=== PATIENT | male | born 1965 | race Caucasian/White ===

== ENCOUNTER → 2020-09-30 | Outpatient (CLI) | payer OTHER | END | disposition home or self-care (01) ==

== ENCOUNTER 2024-08-30 16:33 | Observation (INO) | payer OTHER ==
[2024-08-30] MEDS: PANTOPRAZOLE 40 MG/10 ML VIAL IVP STA (17:22)
[2024-08-30] MEDS: ONDANSETRON 4 MG/2 ML VIAL IVP STA (17:22)
[2024-08-30] MEDS: SODIUM CHLORIDE 0.9% 1,000 ML IV STA (17:23)
[2024-08-30 17:24] LABS: Basophils # (A) 0.05 10*3/uL (0.00-0.10); Basophils % (A) 0.7 %; Eosinophils # (A) 0.13 10*3/uL (0.04-0.35); Eosinophils % (A) 1.7 %; HCT 47.1 % (39.6-50.0); HGB 15.6 g/dL (13.0-17.0); Lymphocytes # (A) 1.52 10*3/uL (0.90-5.00); Lymphocytes % (A) 20.3 %; MCH 30.6 pg (27.0-32.0); MCHC 33.1 g/dL (32.0-37.0); MCV 92.5 fL (80.0-97.0); Mean Platelet Volume 8.9 fL (9.5-12.2); Monocytes # (A) 0.64 10*3/uL (0.20-1.00); Monocytes % (A) 8.5 %; Neutrophils # (A) 5.14 10*3/uL (1.80-7.70); Neutrophils % (A) 68.7 %; Platelet Count 236 10*3/uL (140-440); RBC 5.09 10*6/uL (4.40-5.60); RDW 14.6 % (11.5-14.5); WBC 7.49 10*3/uL (4.50-10.00)
--- NOTE | 2024-08-30 17:32 | ED ---
GI Bleed HPI - General Chief complaint: GI Bleed Stated complaint: Blood in stool Time Seen by Provider: 08/30/24 16:49 Source: patient, RN notes reviewed, old records reviewed Mode of arrival: ambulatory Limitations: no limitations - History of Present Illness Initial comments: This is a 58-year-old male to the ER for evaluation today. Patient is on blood thinners but comes in with abdominal pain and significant blood in the stool bright red blood in the stool with bowel movement today. Patient feels a little lightheaded but not near syncopal. No prior history of GI bleed does have prior colonoscopy normal MD complaint: blood on toilet paper, gross hematochezia -: hour(s) Quality: cramping Consistency: constant Improves with: none Worsens with: bowel movement Associated Symptoms: abdominal pain - Related Data Home Medications Medication Instructions Recorded Confirmed Albuterol Inhaler [Ventolin Hfa 2 puff INHALATION RT-QID PRN 01/03/17 08/30/24 Inhaler] Glimepiride [Amaryl] 4 mg PO BID 01/03/17 08/30/24 Ibuprofen [Motrin] 800 mg PO TID PRN 01/03/17 08/30/24 metFORMIN HCL [Glucophage] 500 mg PO BID 01/03/17 08/30/24 Atorvastatin [Lipitor] 80 mg PO DAILY 08/30/24 08/30/24 Diclofenac Sodium Gel [Voltaren 1% 4 gm TOPICAL QID PRN 08/30/24 08/30/24 Gel] Docusate [Colace] 200 mg PO DAILY 08/30/24 08/30/24 Fluticasone Nasal [place] [Flonase 1 spr EA NOSTRIL DAILY 08/30/24 08/30/24 Nasal [place]] HYDROcodone/APAP 5-325MG [[place] 1 tab PO BID 08/30/24 08/30/24 5-325] Olopatadine HCl [Patanol 0.1%] 2 drops BOTH EYES DAILY 08/30/24 08/30/24 diazePAM [Valium] 5 mg PO BID 08/30/24 08/30/24 lisinopriL 40 mg PO DAILY 08/30/24 08/30/24 traZODone HCL 150 mg PO HS 08/30/24 08/30/24 Allergies Allergy/AdvReac Type Severity Reaction Status Date / Time No Known Allergies Allergy Verified 08/30/24 20:40 Review of Systems ROS Statement: Those systems with pertinent positive or pertinent negative responses have been documented in the HPI. ROS Other: All systems not noted in ROS Statement are negative. Past Medical History Past Medical History: COPD, Diabetes Mellitus, GERD/Reflux, Hypertension, Osteoarthritis (OA) Additional Past Medical History / Comment(s): shoulder pain.constipation, abd hernia History of Any Multi-Drug Resistant Organisms: None Reported Past Surgical History: Tonsillectomy Past Anesthesia/Blood Transfusion Reactions: No Reported Reaction Past Psychological History: No Psychological Hx Reported Past Alcohol Use History: Occasional Past Drug Use History: Marijuana - Past Family History Mother Family Medical History: Diabetes Mellitus, Hyperlipidemia, Hypertension Father Family Medical History: Cancer Additional Family Medical History / Comment(s): bone cancer General Exam Limitations: no limitations General appearance: alert, in no apparent distress Head exam: Present: atraumatic, normocephalic, normal inspection Eye exam: Present: normal appearance, PERRL, EOMI. Absent: scleral icterus, conjunctival injection, periorbital swelling ENT exam: Present: normal exam, mucous membranes moist Neck exam: Present: normal inspection. Absent: tenderness, meningismus, lymphadenopathy Respiratory exam: Present: normal lung sounds bilaterally. Absent: respiratory distress, wheezes, rales, rhonchi, stridor Cardiovascular Exam: Present: regular rate, normal rhythm, normal heart sounds. Absent: systolic murmur, diastolic murmur, rubs, gallop, clicks GI/Abdominal exam: Present: soft, normal bowel sounds. Absent: distended, tenderness, guarding, rebound, rigid Extremities exam: Present: normal inspection, full ROM, normal capillary refill. Absent: tenderness, pedal edema, joint swelling, calf tenderness Back exam: Present: normal inspection Neurological exam: Present: alert, oriented X3, CN II-XII intact Psychiatric exam: Present: normal affect, normal mood Skin exam: Present: warm, dry, intact, normal color. Absent: rash Course Vital Signs 08/30/24 08/30/24 16:48 19:55 Temperature 98.5 F Pulse Rate 100 93 Respiratory 17 17 Rate Blood Pressure 168/92 121/82 O2 Sat by Pulse 94 L 93 L Oximetry - Reevaluation(s) Reevaluation #1: 08/30/24 17:31 Medical records reviewed Reevaluation #2: 08/30/24 21:22 No recurrent bright red blood here in the ER Reevaluation #3: 08/30/24 21:22 Patient informed of results and questions answered Reevaluation #4: Was pt. sent in by a medical professional or institution (TANIA Baldwin, ELECTRICAL AND INSTRUMENT ENGINEER, urgent care, hospital, or fdc...) When possible be specific @ -no Did you speak to anyone other than the patient for history (EMS, parent, family, police, friend...)? What history was obtained from this source @ -no Did you review nursing and triage notes (agree or disagree)? Why? @ -agree Are old charts reviewed (outside hosp., previous admission, EMS record, old EKG, old radiological studies, urgent care reports/EKG's, fdc records)? Report findings @ -yes Differential Diagnosis (chest pain, altered mental status, abdominal pain women, abdominal pain men, vaginal bleeding, weakness, fever, dyspnea, syncope, he adache, dizziness, GI bleed, back pain, seizure, CVA, palpatations, mental health, musculoskeletal)? @ -prior EKG interpreted by me (3pts min.). @ -yes X-rays interpreted by me (1pt min.). @ -yes negative for acute disease CT interpreted by me (1pt min.). @ -no U/S interpreted by me (1pt. min.). @ -no What testing was considered but not performed or refused? (CT, X-rays, U/S, labs)? Why? @ -none What meds were considered but not given or refused? Why? @ -none Did you discuss the management of the patient with other professionals (professionals i.e. TANIA Baldwin, ELECTRICAL AND INSTRUMENT ENGINEER, lab, RT, psych nurse, delinquency prevention social worker, diamond cleaver, teacher, commercial loan officer, counseling case manager)? Give summary @ -no Was smoking cessation discussed for >3mins.? @ -no Was critical care preformed (if so, how long)? @ -no Were there social determinants of health that impacted care today? How? (Homelessness, low income, unemployed, alcoholism, drug addiction, transportation, low edu. Level, literacy, decrease access to med. care, retirement, rehab)? @ -none Was there de-escalation of care discussed even if they declined (Discuss DNR or withdrawal of care, Hospice)? DNR status @ -no What co-morbidities impacted this encounter? (DM, HTN, Smoking, COPD, CAD, Cancer, CVA, ARF, Chemo, Hep., AIDS, mental health diagnosis, sleep apnea, m orbid obesity)? @ -none Was patient admitted / discharged? Hospital course, mention meds given and route, prescriptions, significant lab abnormalities, going to OR and other pertinent info. @ - Undiagnosed new problem with uncertain prognosis? @ -no Drug Therapy requiring intensive monitoring for toxicity (Heparin, Nitro, Insulin, Cardizem)? @ -no Were any procedures done? @ -no Diagnosis/symptom? @ - Acute, or Chronic, or Acute on Chronic? @ -Acute Uncomplicated (without systemic symptoms) or Complicated (systemic symptoms)? @ -Complicated Side effects of treatment? @ -no Exacerbation, Progression, or Severe Exacerbation? @ -exacerbation Poses a threat to life or bodily function? How? (Chest pain, [place], [place], pneumonia, PE, COPD, DKA, ARF, appy, cholecystitis, CVA, Diverticulitis, Homicidal, Suicidal, threat to staff... and all critical care pts) @ -yes Reevaluation #5: Differential GI Bleed: Esophageal varices, aortoenteric fistula, Rohini-Parker, gastritis, peptic ulcer disease, diverticulosis, inflammatory bowel disease, hemorrhoids, fissure, c olitis, malignancy, Meckel's diverticulum, this is not meant to be an all- inclusive list. - Consultations Consultation #1: Spoke with Dr. Malloy who agrees to admit this patient Medical Decision Making - Medical Decision Making 58 male to be admitted for acute GI bleed - Lab Data Result diagrams: 08/30/24 17:21 08/30/24 17:21 Lab Results 08/30/24 08/30/24 08/30/24 Range/Units 17:21 17:21 17:21 WBC 7.49 (4.50-10.00) 10*3/uL RBC 5.09 (4.40-5.60) 10*6/uL Hgb 15.6 (13.0-17.0) g/dL Hct 47.1 (39.6-50.0) % MCV 92.5 (80.0-97.0) fL MCH 30.6 (27.0-32.0) pg MCHC 33.1 (32.0-37.0) g/dL Plt Count 236 (140-440) 10*3/uL MPV 8.9 L (9.5-12.2) fL Immature Gran % (Auto) 0.1 % Neutrophils % 68.7 % Lymphocytes % 20.3 % Monocytes % 8.5 % Eosinophils % 1.7 % Basophils % 0.7 % Immature Gran # 0.01 (0.00-0.04) 10*3/uL Neutrophils # 5.14 (1.80-7.70) 10*3/uL Lymphocytes # 1.52 (0.90-5.00) 10*3/uL Monocytes # 0.64 (0.20-1.00) 10*3/uL Eosinophils # 0.13 (0.04-0.35) 10*3/uL Basophils # 0.05 (0.00-0.10) 10*3/uL PT 10.4 (10.0-12.5) sec INR 0.9 (<1.2) APTT 22.9 (22.0-30.0) sec Sodium 136 L (137-145) mmol/L Potassium 5.1 (3.5-5.1) mmol/L Chloride 99 (98-107) mmol/L Carbon Dioxide 29 (22-30) mmol/L Anion Gap 8 mmol/L BUN 28 H (9-20) mg/dL Creatinine 1.12 (0.66-1.25) mg/dL Est GFR (CKD-EPI)AfAm 82 (>60 ml/min/1.73 sqM) Est GFR (CKD-EPI)NonAf 71 (>60 ml/min/1.73 sqM) Glucose 206 H (74-99) mg/dL Calcium 10.4 H (8.4-10.2) mg/dL Magnesium 1.5 L (1.6-2.3) mg/dL Total Bilirubin 0.7 (0.2-1.3) mg/dL AST 40 (17-59) U/L ALT 38 (4-49) U/L Alkaline Phosphatase 116 (38-126) U/L Ammonia (<30) umol/L Troponin I (0.000-0.034) ng/mL Total Protein 7.4 (6.3-8.2) g/dL Albumin 4.6 (3.5-5.0) g/dL Lipase 85 (23-300) U/L Blood Type Blood Type Confirm Blood Type Recheck Bld Type Recheck Status Antibody Screen Spec Expiration Date 08/30/24 08/30/24 08/30/24 Range/Units 17:21 17:30 17:35 WBC (4.50-10.00) 10*3/uL RBC (4.40-5.60) 10*6/uL Hgb (13.0-17.0) g/dL Hct (39.6-50.0) % MCV (80.0-97.0) fL MCH (27.0-32.0) pg MCHC (32.0-37.0) g/dL Plt Count (140-440) 10*3/uL MPV (9.5-12.2) fL Immature Gran % (Auto) % Neutrophils % % Lymphocytes % % Monocytes % % Eosinophils % % Basophils % % Immature Gran # (0.00-0.04) 10*3/uL Neutrophils # (1.80-7.70) 10*3/uL Lymphocytes # (0.90-5.00) 10*3/uL Monocytes # (0.20-1.00) 10*3/uL Eosinophils # (0.04-0.35) 10*3/uL Basophils # (0.00-0.10) 10*3/uL PT (10.0-12.5) sec INR (<1.2) APTT (22.0-30.0) sec Sodium (137-145) mmol/L Potassium (3.5-5.1) mmol/L Chloride (98-107) mmol/L Carbon Dioxide (22-30) mmol/L Anion Gap mmol/L BUN (9-20) mg/dL Creatinine (0.66-1.25) mg/dL Est GFR (CKD-EPI)AfAm (>60 ml/min/1.73 sqM) Est GFR (CKD-EPI)NonAf (>60 ml/min/1.73 sqM) Glucose (74-99) mg/dL Calcium (8.4-10.2) mg/dL Magnesium (1.6-2.3) mg/dL Total Bilirubin (0.2-1.3) mg/dL AST (17-59) U/L ALT (4-49) U/L Alkaline Phosphatase (38-126) U/L Ammonia (<30) umol/L Troponin I 0.015 (0.000-0.034) ng/mL Total Protein (6.3-8.2) g/dL Albumin (3.5-5.0) g/dL Lipase (23-300) U/L Blood Type A Positive Blood Type Confirm A Positive Blood Type Recheck No Previous Record Bld Type Recheck Status CABO Indicated Antibody Screen NEGATIVE Spec Expiration Date 09/02/2024 - 232908/30/24 Range/Units 17:51 WBC (4.50-10.00) 10*3/uL RBC (4.40-5.60) 10*6/uL Hgb (13.0-17.0) g/dL Hct (39.6-50.0) % MCV (80.0-97.0) fL MCH (27.0-32.0) pg MCHC (32.0-37.0) g/dL Plt Count (140-440) 10*3/uL MPV (9.5-12.2) fL Immature Gran % (Auto) % Neutrophils % % Lymphocytes % % Monocytes % % Eosinophils % % Basophils % % Immature Gran # (0.00-0.04) 10*3/uL Neutrophils # (1.80-7.70) 10*3/uL Lymphocytes # (0.90-5.00) 10*3/uL Monocytes # (0.20-1.00) 10*3/uL Eosinophils # (0.04-0.35) 10*3/uL Basophils # (0.00-0.10) 10*3/uL PT (10.0-12.5) sec INR (<1.2) APTT (22.0-30.0) sec Sodium (137-145) mmol/L Potassium (3.5-5.1) mmol/L Chloride (98-107) mmol/L Carbon Dioxide (22-30) mmol/L Anion Gap mmol/L BUN (9-20) mg/dL Creatinine (0.66-1.25) mg/dL Est GFR (CKD-EPI)AfAm (>60 ml/min/1.73 sqM) Est GFR (CKD-EPI)NonAf (>60 ml/min/1.73 sqM) Glucose (74-99) mg/dL Calcium (8.4-10.2) mg/dL Magnesium (1.6-2.3) mg/dL Total Bilirubin (0.2-1.3) mg/dL AST (17-59) U/L ALT (4-49) U/L Alkaline Phosphatase (38-126) U/L Ammonia 22 (<30) umol/L Troponin I (0.000-0.034) ng/mL Total Protein (6.3-8.2) g/dL Albumin (3.5-5.0) g/dL Lipase (23-300) U/L Blood Type Blood Type Confirm Blood Type Recheck Bld Type Recheck Status Antibody Screen Spec Expiration Date - Radiology Data Radiology results: report reviewed (CT abdomen pelvis negative for acute disease), image reviewed Disposition Clinical Impression: Lower gastrointestinal hemorrhage Disposition: ADMITTED IP TO THIS [facility] Condition: Fair Is patient prescribed a controlled substance at d/c from ED?: No Time of Disposition: 20:20
[2024-08-30 17:36] LABS: INR 0.9 (<1.2); Partial Thromboplastin Time 22.9 sec (22.0-30.0); Prothrombin Time 10.4 sec (10.0-12.5)
[2024-08-30 17:46] LABS: ALT 38 U/L (4-49); AST 40 U/L (17-59); African American GFR (CKD) 82 (>60 ml/min/1.73 sqM); Albumin 4.6 g/dL (3.5-5.0); Alkaline Phosphatase 116 U/L (38-126); Anion Gap 8 mmol/L; Blood Urea Nitrogen 28 mg/dL (9-20); Calcium 10.4 mg/dL (8.4-10.2); Carbon Dioxide 29 mmol/L (22-30); Chloride 99 mmol/L (98-107); Glucose 206 mg/dL (74-99); Lipase 85 U/L (23-300); Magnesium 1.5 mg/dL (1.6-2.3); Non-African American GFR(CKD) 71 (>60 ml/min/1.73 sqM); Potassium 5.1 mmol/L (3.5-5.1); Sodium 136 mmol/L (137-145); Total Bilirubin 0.7 mg/dL (0.2-1.3); Total Protein 7.4 g/dL (6.3-8.2)
--- NOTE | 2024-08-30 18:37 | CT ---
EXAMINATION TYPE: CT abdomen pelvis w con DATE OF EXAM: 08/30/2024 6:14 PM COMPARISON: None. CLINICAL INDICATION: Male, 58 years old with history of pain,gib, Pt states "discharging blood out of butt" x today TECHNIQUE: Axial images were obtained from above the diaphragm to the pubic rami in the axial plane a t 5 mm thick sections. Reconstructed images are reviewed on the computer in the coronal plane. CONTRAST: 100ml mL of Isovue 300. Study performed without Oral Contrast DLP: 2064.6 mGycm, Automated exposure control for dose reduction was used. FINDINGS: Limited CT sections are obtained the lung bases. The lung bases are clear. CT ABDOMEN: Liver: Normal Spleen: Normal Pancreas: Normal Adrenal glands: The adrenal glands are normal. Gallbladder: Normal Kidneys: No masses are evident. No hydronephrosis is present. No cysts are present. Delayed images were obtained through the kidneys, which remain unremarkable. Aorta: Vascular calcification is within the aorta. Inferior vena cava: Normal. CT PELVIS: Loops of bowel within the abdomen and pelvis are normal. Diverticulosis without acute diverticulitis is present within the sigmoid colon Study is without oral contrast. No suspicious abnormality to a ccount for GI bleed is evident Appendix: Normal as visualized. Urinary bladder: Normal. Genitourinary structures: Prostate calcifications present Osseous structures: No suspicious lytic or sclerotic lesions. IMPRESSION: 1. No suspicious acute changes. [facility], , 08/30/2024 6:35 PM
[2024-08-30] MEDS ORDERED: NALOXONE 0.4 MG/ML 1 ML VIAL IV PRN (19:37)
[2024-08-30] MEDS: MAGNESIUM SULFATE-D5W PMX 1 GM in DEXTROSE/WATER 1 100ML.BAG IVPB SCH (19:50)
[2024-08-30] MEDS: SODIUM CHLORIDE 0.9% 1,000 ML IV SCH (21:00)
[2024-08-30] MEDS: MORPHINE SULFATE 4 MG/ML SYRINGE IV PRN (23:15)
[2024-08-30] MEDS: ONDANSETRON 4 MG/2 ML VIAL IVP PRN (23:35)
[2024-08-31 08:17] LABS: Basophils # (A) 0.07 X 10*3/uL (0.00-0.10); Basophils % (A) 0.9 %; Eosinophils # (A) 0.23 X 10*3/uL (0.04-0.35); Eosinophils % (A) 3.1 %; HCT 45.6 % (39.6-50.0); HGB 14.4 g/dL (13.0-17.0); Lymphocytes # (A) 2.55 X 10*3/uL (0.90-5.00); Lymphocytes % (A) 34.2 %; MCH 30.1 pg (27.0-32.0); MCHC 31.6 g/dL (32.0-37.0); MCV 95.4 FL (80.0-97.0); Mean Platelet Volume 9.4 FL (9.5-12.2); Monocytes # (A) 0.84 X 10*3/uL (0.20-1.00); Monocytes % (A) 11.3 %; NRBC Per 100 WBC 0 X 10*3/uL (0.00-0.01); Neutrophils # (A) 3.76 X 10*3/uL (1.80-7.70); Neutrophils % (A) 50.4 %; Platelet Count 234 X 10*3/uL (140-440); RBC 4.78 X 10*6/uL (4.40-5.60); RDW 14.8 % (11.5-14.5); WBC 7.46 X 10*3/uL (4.50-10.00)
[2024-08-31 08:47] LABS: ALT 33 U/L (10-49); AST 35 U/L (14-35); Albumin 4.1 g/dL (3.8-4.9); Albumin/Globulin Ratio 1.86 Ratio (1.60-3.17); Alkaline Phosphatase 104 U/L (41-126); Blood Urea Nitrogen 20.2 mg/dL (9.0-27.0); Calcium 9.5 mg/dL (8.7-10.3); Carbon Dioxide 27.3 mmol/L (21.6-31.8); Chloride 103 mmol/L (96-109); Globulin 2.2 g/dL (1.6-3.3); Glucose 90 mg/dL (70-110); Magnesium 2.2 mg/dL (1.5-2.4); Phosphorus 3.4 mg/dL (2.4-5.1); Potassium 5.3 mmol/L (3.5-5.5); Sodium 140 mmol/L (135-145); Total Bilirubin 0.4 mg/dL (0.3-1.2); Total Protein 6.3 g/dL (6.2-8.2)
[2024-08-31] MEDS ORDERED: DEXTROSE 50% SYRINGE 50 ML IVP PRN ×2 (09:01)
[2024-08-31] MEDS: PANTOPRAZOLE 40 MG/10 ML VIAL IV SCH (09:03)
--- NOTE | 2024-08-31 11:01 | P.CONS ---
History of Present Illness - Reason for Consult Consult date: 08/31/24 GI bleed Requesting physician: Arnulfo Luis - Chief Complaint Rectal bleeding - History of Present Illness This is a pleasant 58-year-old male with past medical history including diabetes mellitus, hypertension, obesity, and arthritis who had presented to the [facility] department yesterday with complaints of blood per rectum. Patient states he had 4 episodes of bright red blood per rectum. States he started with a left lower abdominal cramping followed by feeling like he had a bowel movement however it was just blood was mixed with some clots in the toilet. He states that this has happened in the past with having an actual bowel movement which he thought was related to straining. He does suffer from constipation and irregular bowel movements. States it is normal for him to go every 5 days without having a bowel movement. Last bowel movement was Friday evening. He denies any anticoagulation use. Takes ibuprofen as needed for pain for history of rotator cuff tear and arthritis. Last colonoscopy about 5 years ago he believes done at [facility]. Had a CT of the abdomen pelvis with IV contrast no oral contrast that reported no acute findings did have diverticulosis without any concern for diverticulitis. Admitting hemoglobin 15.6 with a repeat today of 14.4. He has had no further bleeding since he came into the hospital. States he does still have some left lower abdominal tenderness with palpation but no pain currently. No nausea or vomiting. He has been afebrile. Review of Systems REVIEW OF SYSTEMS: CARDIOPULMONARY: No chest pain or shortness of breath. Gastrointestinal: Abdominal pain, left lower quadrant. No nausea or vomiting. No hematemesis, coffee-ground emesis. Rectal bleeding x 4 episodes of bright red blood with clots. GENITOURINARY: No dysuria or hematuria. MUSCULOSKELETAL: Reports normal range of motion., Joint pain, shoulder pain bilateral and knee pain. SKIN: No rashes. No jaundice. ENDOCRINE: No chills, fevers. No excessive weight gain or loss. No polydipsia or polyuria. PSYCHIATRIC: Unremarkable. NEUROLOGY: No change in mental status. Denies dizziness, headache. ENT: Vision unremarkable. CONSTITUTIONAL: No recent weight loss. No fever, chills, night sweats. Past Medical History Past Medical History: COPD, Diabetes Mellitus, GERD/Reflux, Hypertension, Osteoarthritis (OA) Additional Past Medical History / Comment(s): shoulder pain.constipation, abd hernia History of Any Multi-Drug Resistant Organisms: None Reported Past Surgical History: Tonsillectomy Past Anesthesia/Blood Transfusion Reactions: No Reported Reaction Past Psychological History: No Psychological Hx Reported Additional Psychological History / Comment(s): pt is independant. lives with his mom. 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 Past Drug Use History: Marijuana Additional Drug Use History / Comment(s): currently smokes marijuana daily - Past Family History Mother Family Medical History: Diabetes Mellitus, Hyperlipidemia, Hypertension Father Family Medical History: Cancer Additional Family Medical History / Comment(s): bone cancer Medications and Allergies Home Medications Medication Instructions Recorded Confirmed Type Albuterol Inhaler [Ventolin Hfa 2 puff INHALATION RT-QID PRN 01/03/17 08/30/24 History Inhaler] Glimepiride [Amaryl] 4 mg PO BID 01/03/17 08/30/24 History Ibuprofen [Motrin] 800 mg PO TID PRN 01/03/17 08/30/24 History metFORMIN HCL [Glucophage] 500 mg PO BID 01/03/17 08/30/24 History Atorvastatin [Lipitor] 80 mg PO DAILY 08/30/24 08/30/24 History Diclofenac Sodium Gel [Voltaren 1% 4 gm TOPICAL QID PRN 08/30/24 08/30/24 History Gel] Docusate [Colace] 200 mg PO DAILY 08/30/24 08/30/24 History Fluticasone Nasal [place] [Flonase 1 spr EA NOSTRIL DAILY 08/30/24 08/30/24 History Nasal [place]] HYDROcodone/APAP 5-325MG [[place] 1 tab PO BID 08/30/24 08/30/24 History 5-325] Olopatadine HCl [Patanol 0.1%] 2 drops BOTH EYES DAILY 08/30/24 08/30/24 History diazePAM [Valium] 5 mg PO BID 08/30/24 08/30/24 History lisinopriL 40 mg PO DAILY 08/30/24 08/30/24 History traZODone HCL 150 mg PO HS 08/30/24 08/30/24 History Allergies Allergy/AdvReac Type Severity Reaction Status Date / Time No Known Allergies Allergy Verified 08/30/24 20:40 Physical Exam Vitals: Vital Signs Temp Pulse Pulse Resp BP BP Pulse Ox 08/31/24 07:03 97.9 F 80 16 114/68 91 L 08/31/24 02:00 97.6 F 86 16 147/79 93 L 08/30/24 21:41 97.8 F 90 18 173/84 95 08/30/24 19:55 93 17 121/82 93 L 08/30/24 16:48 98.5 F 100 17 168/92 94 L Intake and Output 08/30/24 08/31/24 08/31/24 22:59 06:59 14:59 Other: # Voids 1 Weight 111.13 kg General appearance: The patient is alert, oriented, appears in no acute distress. HET: Head is normocephalic and atraumatic. Conjunctiva pink. Sclera anicteric. Neck: Supple without lymphadenopathy. Trachea midline. Heart: Regular. Lungs: Equal expansion, normal respiratory effort. Abdomen: Soft, left lower quadrant tenderness, nondistended. Skin: No rashes. No jaundice. Extremities: Normal skin color and turgor. No pedal edema. Neurological: No focal deficits. Alert and oriented x3. Results CBC & Chem 7: 08/31/24 04:43 08/31/24 04:43 Labs: Abnormal Lab Results - Last 24 Hours (Table) 08/30/24 08/30/24 08/31/24 Range/Units 17:21 17:21 04:43 MCHC 31.6 L (32.0-37.0) g/dL RDW 14.8 H (11.5-14.5) % MPV 8.9 L 9.4 L (9.5-12.2) fL Sodium 136 L (137-145) mmol/L BUN 28 H (9-20) mg/dL BUN/Creatinine Ratio (12.00-20.00) Ratio Glucose 206 H (74-99) mg/dL Calcium 10.4 H (8.4-10.2) mg/dL Magnesium 1.5 L (1.6-2.3) mg/dL 08/31/24 Range/Units 04:43 MCHC (32.0-37.0) g/dL RDW (11.5-14.5) % MPV (9.5-12.2) fL Sodium (137-145) mmol/L BUN (9-20) mg/dL BUN/Creatinine Ratio 20.20 H (12.00-20.00) Ratio Glucose (74-99) mg/dL Calcium (8.4-10.2) mg/dL Magnesium (1.6-2.3) mg/dL Comments: CT abdomen pelvis with IV contrast reports no suspicious acute changes. Assessment and Plan (1) Lower gastrointestinal hemorrhage Narrative/Plan: 58-year-old male with 4 episodes of rectal bleeding yesterday described as bright red blood with clots following left lower abdominal cramping. This is in a patient who does suffer from constipation and irregular bowel movements with previous rectal bleeding with bowel movements however no previous straight blood per rectum. No further rectal bleeding. Need to consider possible diver ticular bleed in setting of diverticulosis on CAT scan, also consider possible rectal fissure or hemorrhoidal bleed. Last colonoscopy 5 years ago. Will proceed with colonoscopy. Current Visit: Yes Status: Acute Code(s): K92.2 - GASTROINTESTINAL HEMORRHAGE, UNSPECIFIED SNOMED Code(s): 68108727 (2) Diabetes mellitus Current Visit: Yes Status: Acute Code(s): E11.9 - TYPE 2 DIABETES MELLITUS WITHOUT COMPLICATIONS SNOMED Code(s): 44061929 (3) Obesity Current Visit: Yes Status: Acute Code(s): E66.9 - OBESITY, UNSPECIFIED SNOMED Code(s): 904725218 (4) Essential hypertension Current Visit: No Status: Acute Code(s): I10 - ESSENTIAL (PRIMARY) HYPERT ENSION SNOMED Code(s): 54423125 Plan: 1. Continue symptomatic and supportive care 2. Patient may have clear liquid diet, n.p.o. after midnight 3. Daily CBC, transfuse for hemoglobin less than 7 4. Bowel prep this evening 5. Recommend regular bowel regimen with MiraLAX once to twice daily for constipation 6. Plan for colonoscopy tomorrow Thank you for this consultation, we will continue to follow. Dr. Bhavesh Silva I agree with the dictator's note, documented as a scribe by Giselle Pinzon
[2024-08-31 12:11] LABS: Glucose,Whole Blood 157 mg/dL (70-110)
[2024-08-31] MEDS: INSULIN LISPRO (HumaLOG) 100 UNIT/ML 10 mL VL SQ SCH (13:25)
[2024-08-31] MEDS: PEG 3350 (236 GM/BTL) + LYTES 4,000 ML BOTTLE PO ONE (16:06)
[2024-08-31 17:38] LABS: Glucose,Whole Blood 129 mg/dL (70-110)
[2024-08-31 20:32] LABS: Glucose,Whole Blood 131 mg/dL (70-110)
[2024-09-01 07:16] LABS: Glucose,Whole Blood 102 mg/dL (70-110)
[2024-09-01 08:02] LABS: Basophils # (A) 0.04 X 10*3/uL (0.00-0.10); Basophils % (A) 0.7 %; Eosinophils % (A) 3.3 %; HCT 42.9 % (39.6-50.0); HGB 13.5 g/dL (13.0-17.0); Lymphocytes % (A) 35.1 %; MCH 30.5 pg (27.0-32.0); MCHC 31.5 g/dL (32.0-37.0); MCV 97.1 FL (80.0-97.0); Mean Platelet Volume 9.4 FL (9.5-12.2); Monocytes # (A) 0.68 X 10*3/uL (0.20-1.00); Monocytes % (A) 11.4 %; NRBC Per 100 WBC 0 X 10*3/uL (0.00-0.01); Neutrophils # (A) 2.96 X 10*3/uL (1.80-7.70); Neutrophils % (A) 49.3 %; Platelet Count 201 X 10*3/uL (140-440); RBC 4.42 X 10*6/uL (4.40-5.60); RDW 14.7 % (11.5-14.5); WBC 5.99 X 10*3/uL (4.50-10.00)
[2024-09-01 08:04] VITALS: RESP 16
[2024-09-01 12:09] LABS: Glucose,Whole Blood 110 mg/dL (70-110)
[2024-09-01 12:53] VITALS: BP 167/94; PULSE 77; TEMP 97.4
[2024-09-01] MEDS ORDERED: LIDOCAINE 1% INJ 10MG/ML (20 ML MDV) ONE (12:55)
[2024-09-01] MEDS ORDERED: PROPOFOL 10 MG/ML 20 ML VIAL IV ONE (12:55)
[2024-09-01] MEDS: IV FLUID CONTINUATION 800 ML IV ONE ×2 (13:02→13:16)
--- NOTE | 2024-09-01 13:17 | P.PCN ---
Date of Procedure: 09/01/24 Procedure(s) Performed: BRIEF HISTORY: Patient is a 58-year-old pleasant white male admitted to hospital with rectal bleeding for the last 3 days duration. He is not scheduled for colonoscopy to evaluate further. Hemoglobin is 13.5 g/dL. PROCEDURE PERFORMED: Colonoscopy with biopsy. PREOPERATIVE DIAGNOSIS: Rectal bleeding of 3 days duration IV sedation per Anesthesia. PROCEDURE: After informed consent was obtained, the patient, was brought into the endoscopy unit. IV sedation was administered by Anesthesia under continuous monitoring. Digital rectal examination was normal. Initially the Olympus CF-160 flexible video colonoscope was then inserted in the rectum, gradually advanced into the cecum without any difficulty. Careful examination was performed as the scope was gradually being withdrawn. Ileocecal valve and the appendiceal orifice were visualized and appeared normal. Prep was excellent. Mucosa of the cecum, ascending colon, transverse colon appeared normal. There was mucosal erythema with friability and congestion involving the distal, descending colon, and proximal sigmoid colon, extending from 30 to 50 cm from the anal verge consistent with mild ischemic colitis. Biopsies were done from this area. The distal sigmoid colon and rectum appeared normal. Retroflexion was performed in the rectum and no lesions were seen. The patient tolerated the procedure well. IMPRESSION: Mild mucosal erythema with congestion noted in the proximal sigmoid colon and distal descending colon extending from 30 to 50 cm from anal what consistent with mild ischemic colitis. Rest of the colon appeared normal RECOMMENDATIONS: Findings of this examination were discussed with the patient. He was advised to follow the biopsy results. Advance diet as tolerated. If he remains stable he can be discharged home later today or tomorrow with outpatient follow-up in 1 to 2 weeks.
--- NOTE | 2024-09-01 23:24 | HP ---
HISTORY AND PHYSICAL CHIEF COMPLAINT: Bright red rectal bleeding. HISTORY OF PRESENT ILLNESS: This gentleman presented to the emergency room with bright red rectal bleeding. He has always been a fairly noncompliant patient with hypertension, diabetes, COPD and multiple complaints of pain for which he receives a significant amount of narcotics. He presented to the emergency room with bright red rectal bleeding of several times. He has had no hypotension, syncope, abdominal pain, etc. REVIEW OF SYSTEMS: Otherwise unremarkable. Past medical history, family history, personal and social histories reveal that he is not allergic to any medications. MEDICATIONS: 1. He has been on: Metformin. 1. Glimepiride. 2. Motrin. 3. Diclofenac Gel. 4. Valium. 5. Ventolin. 6. DuoNeb. 7. Lisinopril. 8. Atorvastatin. 9. Trazodone. 10.[facility]. He has had no nausea, vomiting, or hematemesis. SOCIAL HISTORY: He does smoke. He drinks alcohol occasionally. PHYSICAL EXAMINATION: VITAL SIGNS: Normal. HEAD, EARS, EYES, NOSE, MOUTH AND THROAT: Normal. CHEST: Clear. CARDIAC: Demonstrated sinus rhythm with no significant tachycardia. ABDOMEN: Protuberant and somewhat firm. There were no definite masses or visceromegaly and there was no tenderness. Bowel sounds are present. EXTREMITIES: Normal. NEUROLOGICAL: He is intact. DIAGNOSES: He was admitted to the hospital with diagnoses of;: 1. Bright red rectal bleeding. 2. Type 2 diabetes. 3. Chronic obstructive pulmonary disease. 4. Hypertension. 5. Low back pain. PLAN: 1. Bedrest. 2. IV fluids. 3. Frequent monitoring of his neurologic status and vital signs. 4. Gastroenterology consult. MMODL / IJN: [id number] /
--- NOTE | 2024-09-02 02:29 | DS ---
DISCHARGE SUMMARY CHIEF COMPLAINT: GI bleed. HISTORY OF PRESENT ILLNESS AND PHYSICAL EXAMINATION: Details of this man's history and physical can be found in the initial workup. LABORATORY STUDIES: While he was in the hospital, he had laboratory studies, details of which can be found in the laboratory section of his chart. COURSE IN THE HOSPITAL: After admission, he was placed on bedrest, started on intravenous fluids, and seen by GI. His bleeding stopped. He was taken to the operating room on the , where he underwent endoscopy and apparently no pathology was found. There was a report that he might have a colitis. Apparently, a biopsy was obtained. He then abruptly signed himself out against medical advice. FINAL DIAGNOSES: 1. Gastrointestinal hemorrhage. 2. Hypertension. 3. Diabetes. OPERATIONS: Endoscopy. CONSULTATIONS: Gastroenterology. MMODL / IJN: [id number] /
--- NOTE | 2024-09-02 02:59 | PN ---
PROGRESS NOTE DATE OF SERVICE: 08/31/2024 CHIEF COMPLAINT: GI bleed. HISTORY OF PRESENT ILLNESS: This gentleman is doing well. He has not had any further bleeding. Hemoglobin and pulse have been stable. PHYSICAL EXAMINATION: VITAL SIGNS: Blood pressure is 160/92 with a pulse of 100. CHEST: Clear, but breath sounds are poor. CARDIAC: Normal. ABDOMEN: Protuberant. IMPRESSION: 1. Gastrointestinal bleed. 2. Hypertension. 3. Diabetes. PLAN: GI is evaluating him and he may be going for endoscopy. MMODL / IJN: [id number] /
== END 2024-09-01 14:16 | disposition left against medical advice (07) ==
LOC: EC 16:33 → 5NMEDONC 19:37
PROVIDERS: ADMIT Family Medicine; ATTEND Family Medicine
DX: K55.9 Vascular disorder of intestine, unspecified (principal); E11.9 Type 2 diabetes mellitus without complications; I10 Essential (primary) hypertension; K59.00 Constipation, unspecified; K57.90 Diverticulosis of intestine, part unspecified, without perforation or abscess without bleeding; J44.9 Chronic obstructive pulmonary disease, unspecified; M75.100 Unspecified rotator cuff tear or rupture of unspecified shoulder, not specified as traumatic; M19.90 Unspecified osteoarthritis, unspecified site; M54.50 Low back pain, unspecified; E66.9 Obesity, unspecified; Z68.37 Body mass index [BMI] 37.0-37.9, adult; F17.210 Nicotine dependence, cigarettes, uncomplicated; Z91.199 Patient's noncompliance with other medical treatment and regimen due to unspecified reason; Z79.84 Long term (current) use of oral hypoglycemic drugs; Z79.891 Long term (current) use of opiate analgesic; Z79.899 Other long term (current) drug therapy
CPT/HCPCS: 96376 ×3; 96361; 96366 ×3; 96375 ×2; 96365; 99285; 36415; 86900; 86901; 80053 ×2; 82140; 83690; 83735 ×2; 84100; 84484; 85025 ×3; 85610; 85730; 86850; 83036; 74177; 45380; G0378 ×3; J2270 ×3; J2405; J2003; J3475; J2704; Q9967; J2470 ×3; 88305